=== PATIENT | female | born 1950 | race African-American/Black ===

== ENCOUNTER 2018-05-01 11:59 | Observation (INO) | payer OTHER ==
--- NOTE | 2018-05-01 13:38 | PDOC ---
History of Present Illness - General Chief Complaint: Lightheaded Stated Complaint: DIZZY / LIGHTHEADED Time Seen by Provider: 05/01/18 12:55 History Source: Patient Exam Limitations: No Limitations - History of Present Illness Initial Comments: 05/01/18 13:33 Pt is a 67yo F with PMH of DM, HTN, G6PD Deficiency, Hep B, Sickle Cell Trait, Vertigo presenting to ED for hearing a loud noise which caused her to fall face first into her suitcase. Pt said around 11:15 AM she heard "a loud bang" and she felt suddenly weak and her face fell into her suitcase. The episode was very brief and she was able to get up. She denies LOC. She states afterward she felt a fullness in her head and a headache in the posterior aspect of her head and nausea. She denies ataxia but is afraid of falling down. She denies chest pain, sob, numbness/tingling, weakness, changes in vision, ringing in ears, dizziness, lightheadedness, congestion, abdominal pain. No recent illnesses or surgeries. No history of AVM, trauma. Pt says she had a similar episode July 2017 when she heard a loud noise and went limp. PMD: Jose Guadalupe Neuro: Dickoff PMH: see hpi PSH: hysterectomy Meds: see med rec Social: denies Past History - Past Medical History Allergies/Adverse Reactions: Allergies Allergy/AdvReac Type Severity Reaction Status Date / Time aspirin Allergy UNKNOWN Verified 05/01/18 12:13 cefazolin sodium Allergy UNKNOWN Verified 05/01/18 12:13 [From Kezol] Sulfa (Sulfonamide Allergy Verified 05/01/18 12:13 Antibiotics) IVP Allergy UNKNOWN Uncoded 05/01/18 12:13 moth balls Allergy Uncoded 05/01/18 12:13 SULFA Allergy UNKNOWN Uncoded 05/01/18 12:13 Home Medications: Ambulatory Orders Atenolol [Tenormin -] 50 mg PO DAILY 09/14/12 Hydrochlorothiazide [Hctz -] 25 mg PO DAILY 06/10/13 Atorvastatin Ca [Lipitor] 10 mg PO HS 06/01/15 Glipizide 5 mg PO TID 06/01/15 Dulaglutide [Trulicity] 1.5 mg SQ WEEKLY 05/01/18 Insulin Aspart [Novolog] 0 unit SQ ASDIR 05/01/18 Insulin Degludec [Tresiba Flextouch U-100] 75 unit SQ HS 05/01/18 Anemia: Yes (sickle cell trait,G6PD deficiency) Asthma: No Cancer: No Cardiac Disorders: No CVA: No COPD: No CHF: No Dementia: No Diabetes: Yes GI Disorders: No Disorders: No HTN: Yes Hypercholesterolemia: No Liver Disease: Yes (hx of hep b) Seizures: No Thyroid Disease: No - Surgical History Abdominal Surgery: Yes (hernia repair,bilateral oopherectomy) Appendectomy: No Cardiac Surgery: No Cholecystectomy: No Lung Surgery: No Neurologic Surgery: No Orthopedic Surgery: Yes (R CARPAL TUNNEL,R SHOULDER SX,R KNEE SX) - Family Disease History Family Disease History: Diabetes: Mother, Heart Disease: Father (htn) - Immunization History Td Vaccination: Yes Immunization Up to Date: Yes - Suicide/Smoking/Psychosocial Hx Smoking Status: No Smoking History: Never smoked Have you smoked in the past 12 months: No Number of Cigarettes Smoked Daily: 0 Hx Alcohol Use: No Drug/Substance Use Hx: No Substance Use Type: None Hx Substance Use Treatment: No Review of Systems - Review of Systems Constitutional: No: Chills, Fever, Loss of Appetite HEENTM: No: Blurred Vision, Tearing, Double Vision, Ear Pain, Nose Congestion, Hearing Loss, Throat Pain, Throat Swelling Respiratory: No: Cough, Shortness of Breath Cardiac (ROS): Yes: See HPI. No: Chest Pain, Lightheadedness, Palpitations ABD/GI: Yes: Nausea. No: Constipated, Diarrhea, Vomiting, Abdominal cramping : No: Burning, Dysuria Musculoskeletal: No: Back Pain, Joint Pain, Neck Pain Integumentary: No: Symptoms Reported Neurological: Yes: Headache. No: Numbness, Tingling, Tremors, Weakness, Ataxia , Dizziness *Physical Exam - Vital Signs Last Vital Signs Temp Pulse Resp BP Pulse Ox 98.8 F 75 18 143/93 99 05/01/18 12:13 05/01/18 12:13 05/01/18 12:13 05/01/18 12:13 05/01/18 12:13 - Physical Exam General Appearance: Yes: Nourished, Appropriately Dressed. No: Apparent Distress HEENT: positive: EOMI, LATRICE, Normal ENT Inspection Neck: positive: Trachea midline, Supple. negative: Lymphadenopathy (R), Lymphadenopathy (L) Respiratory/Chest: positive: Lungs Clear, Normal Breath Sounds Cardiovascular: positive: Regular Rhythm, Regular Rate, S1, S2. negative: Edema , JVD, Murmur Vascular Pulses: Carotid (R): 2+, Carotid (L): 2+, Dorsalis-Pedis (R): 2+, Doralis-Pedis (L): 2+ Gastrointestinal/Abdominal: positive: Normal Bowel Sounds, Soft. negative: Tender Musculoskeletal: negative: CVA Tenderness Extremity: positive: Normal Capillary Refill, Pelvis Stable. negative: Swelling , Calf Tenderness Integumentary: positive: Normal Color, Dry, Warm Neurologic: positive: machine group leader II-XII NML intact, Fully Oriented, Alert, Normal Mood/ Affect, Normal Response, Motor Strength 5/5, Finger to Nose, Other (negative romberg, no ataxia). negative: Facial Droop, Numbness ED Treatment Course - LABORATORY CBC & Chemistry Diagram: 05/01/18 13:26 05/01/18 13:26 - RADIOLOGY Radiology Studies Ordered: Category Date Time Status HEAD CT WITHOUT CONTRAST [CT] Stat CT Scan 05/01/18 13:25 Ordered Medical Decision Making - Medical Decision Making 05/01/18 13:38 Pt is a 67yo F with PMH of DM, HTN, G6PD Deficiency, Hep B, Sickle Cell Trait, Vertigo presenting to ED for hearing a loud noise which caused her to fall face first into her suitcase. Pt said around 11:15 AM she heard "a loud bang" and she felt suddenly weak and her face fell into her suitcase. The episode was very brief and she was able to get up. She denies LOC. She states afterward she felt a fullness in her head and a headache in the posterior aspect of her head and nausea. She denies ataxia but is afraid of falling down. She denies chest pain, sob, numbness/tingling, weakness, changes in vision, ringing in ears, dizziness, lightheadedness, congestion, abdominal pain. No recent illnesses or surgeries. No history of AVM, trauma. Vitals: wnl PE: no neurological deficits. 05/01/18 15:18 Pt did state that she had a similar episode in the past. Pt says her whole body gets weak and she "goes down". -syncope workup: added trop and ekg. -tylenol Pt still thinking about getting LP. 05/01/18 15:19 05/01/18 17:[address] Wylie, recommends CTA 05/01/18 19:15 Pt states that she had IV contrast years ago and hours later developed SOB. She has not had contrast before then or after. Called Dr Carey who recommended MRI/MRA. Pt admitted obs for syncope. *DC/Admit/Observation/Transfer Diagnosis at time of Disposition: Syncope Qualifiers: Syncope type: unspecified Qualified Code(s): R55 - Syncope and collapse - Discharge Dispostion Condition at time of disposition: Good - Referrals - Patient Instructions - Post Discharge Activity
[2018-05-01 13:40] LABS: BASO % 0.5 % (0-2.0); EOS % 1.4 % (0-4.5); HEMATOCRIT 40.2 % (32.4-45.2); LYMPH % 33.1 % (8-40); MCH 29.2 pg (25.7-33.7); MCHC 34.7 g/dl (32.0-36.0); MEAN CELL VOLUME 84.1 fl (80-96); MEAN PLT VOLUME 9.6 fl (7.5-11.1); MONO % 7.8 % (3.8-10.2); NEUT % 57.2 % (42.8-82.8); PLATELET COUNT 201 K/MM3 (134-434); RBC 4.78 M/mm3 (3.60-5.2); RDW 13.5 % (11.6-15.6); WHITE BLOOD COUNT 7.1 K/mm3 (4.0-10.0)
[2018-05-01 14:07] LABS: ALK PHOS 110 U/L (45-117); ANION GAP 7 MMOL/L (8-16); BILIRUBIN,TOTAL 0.4 mg/dL (0.2-1); BLOOD UREA NITROGEN 9 mg/dL (7-18); CALCIUM 9.1 mg/dL (8.5-10.1); CHLORIDE 103 mmol/L (98-107); CO2 30 mmol/L (21-32); CREATININE 0.6 mg/dL (0.55-1.3); GLUCOSE,RANDOM 162 mg/dL (74-106); POTASSIUM 3.8 mmol/L (3.5-5.1); SGOT/AST 21 U/L (15-37); SGPT/ALT 26 U/L (13-61); SODIUM 140 mmol/L (136-145); TOT PROT 7.6 g/dl (6.4-8.2)
[2018-05-01 14:39] LABS: ANISOCYTOSIS 0; HELMET CELLS 0; HOWELL-JOLLY BODIES 0; MACROCYTOSIS 0; OVALOCYTE 0; PLATELET ESTIMATE NORMAL; ROULEAU 0; SICKELED CELLS 0; TARGET CELLS 0; TEAR DROP CELLS 0; TOXIC GRANULATION 0
--- NOTE | 2018-05-01 14:50 | PDOC ---
Attending Attestation - Resident Resident Name: CherieKaterin - ED Attending Attestation I have performed the following: I have examined & evaluated the patient, The case was reviewed & discussed with the resident, I agree w/resident's findings & plan, Exceptions are as noted - HPI HPI: 05/01/18 14:28 The patient is a 50 year old female, with a significant past medical history of vertigo, sickle cell train, IDDM, HepB, who presents to the emergency department with headache and syncopal episode. Pt states that she was in her bedroom packing when she suddenly heard a loud bang in her head. Pt subsequently fell forward onto her bed. Pt is unsure if she lost consciousness or not. Since the event, she has had posterior headache. She also reports nausea and a feeling of fullness to her head. Pt notes that she had a similar episode several years ago. She states she heard a loud bang that was also followed by LOC. The patient denies chest pain, shortness of breath, headache and dizziness. The patient denies fever, chills, nausea, vomit, diarrhea and constipation. The patient denies dysuria, frequency, urgency and hematuria. Allergies: NKDA Neurologist: Dr. Brown - Physicial Exam PE: 05/01/18 14:50 "GENERAL: Awake, alert, and fully oriented, in no acute distress. HEAD: No signs of trauma EYES: PERRLA, EOMI, sclera anicteric, conjunctiva clear ENT: Auricles normal inspection, hearing grossly normal, nares patent, oropharynx clear without exudates. Moist mucosa NECK: Nontender, no stepoffs, Normal ROM, supple, no lymphadenopathy, JVD, or masses LUNGS: Breath sounds equal, clear to auscultation bilaterally. No wheezes, and no crackles HEART: Regular rate and rhythm, normal S1 and S2, no murmurs, rubs or gallops ABDOMEN: Soft, nontender, normoactive bowel sounds. No guarding, no rebound. No masses EXTREMITIES: Normal range of motion, no edema. No clubbing or cyanosis. No cords, erythema, or tenderness NEUROLOGICAL: Cranial nerves II through XII intact. 5/5 strength and sensation in all extremities, Normal speech, normal gait, normal cerebellar function SKIN: Warm, Dry, normal turgor, no rashes or lesions noted. - Critical Care Time Total Critical Care Time: 60 Critical Care Statement: The care of this patient involved high complexity decision making to prevent further life threatening deterioration of the patient 's condition and/or to evaluate & treat vital organ system(s) failure or risk of failure. - Medical Decision Making 05/01/18 14:51 67 F with syncopal episode preceded by lound bang, now with dull headache. Pt is well appearing with normal mental status and neuro exam. However, given collapse and headache, will need to r/o SAH. Will also evaluate for arrhythmia or other causes of syncope. - Labs, trop - EKG - CT head - COnsider LP 05/01/18 16:35 Labs wnl EKG with lateral TWIs, no sign of arrhythmia CT head unremarkable Need LP to definitively r/o SAH. I discussed risks/benefits of LP with pt at length. Pt understands that without LP, we cannot rule out SAH, a potentially life threatening condition. However, pt states that her mother had a prolonged hospitalization for meningitis, and she is reluctant to have any invasive spinal procedure done. I explained to pt that we would use sterile technique to minimize the risk of infection. Pt states that she would like to hold off on LP at this time. Will admit to obs for syncope work up and discuss LP with pt after she has had more time to consider it. 05/01/18 17:03 Spoke again with pt, who would like to wait for her daughter to arrive to discuss LP. For now, pt continues to refuse. 05/01/18 17:[address] Carey, who states if pt refuses LP, agree with CTA 05/01/18 18:59 Pt stating that she may have a contrast allergy. Had a CT with IV contrast once in the past and developed SOB hours later. Unclear whether this was true contrast allergy. Dr. Carey recommends MRI/MRA if CTA cannot be obtained.
[2018-05-01 15:46] LABS: INR 1.22 (0.83-1.09); PROTHROMBIN TIME (PATIENT) 14.4 SEC (9.7-13.0)
[2018-05-01 15:49] LABS: ACTIVATED PTT 30.8 SECONDS (25.2-36.5)
[2018-05-01] MEDS ORDERED: ACETAMINOPHEN 1000 MG/100 ML VIAL (NON FORMULARY) IVPB ONE (17:04)
[2018-05-01] MEDS ORDERED: METOCLOPRAMIDE HCL INJECTION 10 MG/2 ML VIAL IVPB ONE (17:04)
[2018-05-01] MEDS ORDERED: ACETAMINOPHEN INJECTION 100 ML IVPB ONE (18:16)
[2018-05-01] MEDS ORDERED: METOCLOPRAMIDE HCL INJECTION 10 MG/2 ML VIAL ONE (18:18)
--- NOTE | 2018-05-01 18:48 | HP ---
Admitting History and Physical - Primary Care Physician PCP: Francis Shi - Admission Chief Complaint: syncope History of Present Illness: - History of Present Illness Initial Comments: 05/01/18 13:33 Pt is a 67yo F with PMH of DM, HTN, G6PD Deficiency, Hep B, Sickle Cell Trait, Vertigo presenting to ED for hearing a loud noise which caused her to fall face first into her suitcase. Pt said around 11:15 AM she heard "a loud bang" and she felt suddenly weak and her face fell into her suitcase. The episode was very brief and she was able to get up. She denies LOC. She states afterward she felt a fullness in her head and a headache in the posterior aspect of her head and nausea. She denies ataxia but is afraid of falling down. She denies chest pain, sob, numbness/tingling, weakness, changes in vision, ringing in ears, dizziness, lightheadedness, congestion, abdominal pain. No recent illnesses or surgeries. No history of AVM, trauma. Pt says she had a similar episode July 2017 when she heard a loud noise and went limp. PMD: Jose Guadalupe Neuro: Robert PMH: see hpi PSH: hysterectomy Meds: see med rec Social: denies Pt examined by me in ER no chest pain , palpitations, vertigo Similar episode last year was vertigo as per pt had a cardiac work up >5 years ago History Source: Patient Limitations to Obtaining History: No Limitations - Past Medical History Cardiovascular: Yes: HTN Endocrine: Yes: Diabetes Mellitus - Smoking History Smoking history: Never smoked Have you smoked in the past 12 months: No Aproximately how many cigarettes per day: 0 - Alcohol/Substance Use Hx Alcohol Use: No Home Medications - Allergies Allergies/Adverse Reactions: Allergies Allergy/AdvReac Type Severity Reaction Status Date / Time aspirin Allergy UNKNOWN Verified 05/01/18 12:13 cefazolin sodium Allergy UNKNOWN Verified 05/01/18 12:13 [From Kefzol] Sulfa (Sulfonamide Allergy Verified 05/01/18 12:13 Antibiotics) IVP Allergy UNKNOWN Uncoded 05/01/18 12:13 moth balls Allergy Uncoded 05/01/18 12:13 SULFA Allergy UNKNOWN Uncoded 05/01/18 12:13 - Home Medications Home Medications: Ambulatory Orders Atenolol [Tenormin -] 50 mg PO DAILY 09/14/12 Hydrochlorothiazide [Hctz -] 25 mg PO DAILY 06/10/13 Atorvastatin Ca [Lipitor] 10 mg PO HS 06/01/15 Glipizide 5 mg PO TID 06/01/15 Dulaglutide [Trulicity] 1.5 mg SQ WEEKLY 05/01/18 Insulin Aspart [Novolog] 0 unit SQ ASDIR 05/01/18 Insulin Degludec [Tresiba Flextouch U-100] 75 unit SQ HS 05/01/18 Review of Systems - Review of Systems Constitutional: denies: Chills, Fever Cardiovascular: denies: Chest Pain, Palpitations Physical Examination Vital Signs: Vital Signs Temperature 97.9 F 05/01/18 17:10 Pulse Rate 72 05/01/18 17:10 Respiratory Rate 16 05/01/18 17:10 Blood Pressure 150/64 05/01/18 17:10 O2 Sat by Pulse Oximetry (%) 99 05/01/18 17:10 Constitutional: Yes: No Distress, Calm Cardiovascular: Yes: Regular Rate and Rhythm Respiratory: Yes: CTA Bilaterally Gastrointestinal: Yes: Normal Bowel Sounds, Soft. No: Tenderness Edema: No Labs: CBC, BMP 05/01/18 13:26 05/01/18 13:26 Imaging - Results Cat Scan: Report Reviewed EKG: Image Reviewed Problem List - Problems (1) HTN (hypertension) Code(s): I10 - ESSENTIAL (PRIMARY) HYPERTENSION (2) Diabetes mellitus Code(s): E11.9 - TYPE 2 DIABETES MELLITUS WITHOUT COMPLICATIONS (3) Syncope Code(s): R55 - SYNCOPE AND COLLAPSE Qualifiers: Syncope type: unspecified Qualified Code(s): R55 - Syncope and collapse (4) Dizziness Code(s): R42 - DIZZINESS AND GIDDINESS Assessment/Plan check orthostasis negative CT head Cardiology and Neurology eval fall precautions iv fluids x 24 hours continue with meds check lipids and TSH cardiac enzymes air sampling and monitoring
[2018-05-01] MEDS ORDERED: ATORVASTATIN CA 10 MG TABLET (FP) ONE (21:23)
[2018-05-01] MEDS ORDERED: glipiZIDE 5 MG TABLET (FP) ONE (21:23)
[2018-05-01] MEDS: glipiZIDE 5 MG TABLET (FP) PO SCH (21:27)
[2018-05-01] MEDS: ATORVASTATIN CA 10 MG TABLET (FP) PO SCH (22:14)
[2018-05-02] MEDS: INSULIN SLIDING SCALE (NOVOLOG) 1 VIAL SQ SCH ×3 (07:17→16:59)
[2018-05-02] MEDS ORDERED: glipiZIDE 5 MG TABLET (FP) ONE (08:27)
[2018-05-02] MEDS: glipiZIDE 5 MG TABLET (FP) PO SCH ×2 (08:31→16:59)
--- NOTE | 2018-05-02 09:00 | CON.NEURO ---
Consult - Alcohol/Substance Use Hx Alcohol Use: No - Smoking History Smoking history: Never smoked Have you smoked in the past 12 months: No Aproximately how many cigarettes per day: 0 Home Medications - Allergies Allergies/Adverse Reactions: Allergies Allergy/AdvReac Type Severity Reaction Status Date / Time aspirin Allergy UNKNOWN Verified 05/01/18 12:13 cefazolin sodium Allergy UNKNOWN Verified 05/01/18 12:13 [From Kefzol] Sulfa (Sulfonamide Allergy Verified 05/01/18 12:13 Antibiotics) IVP Allergy UNKNOWN Uncoded 05/01/18 12:13 moth balls Allergy Uncoded 05/01/18 12:13 SULFA Allergy UNKNOWN Uncoded 05/01/18 12:13 - Home Medications Home Medications: Ambulatory Orders Atenolol [Tenormin -] 50 mg PO DAILY 09/14/12 Hydrochlorothiazide [Hctz -] 25 mg PO DAILY 06/10/13 Atorvastatin Ca [Lipitor] 10 mg PO HS 06/01/15 Glipizide 5 mg PO TID 06/01/15 Dulaglutide [Trulicity] 1.5 mg SQ WEEKLY 05/01/18 Insulin Aspart [Novolog] 0 unit SQ ASDIR 05/01/18 Insulin Degludec [Tresiba Flextouch U-100] 75 unit SQ HS 05/01/18 Physical Exam-Neuro Vital Signs: Vital Signs Temperature 97.8 F 05/02/18 05:30 Pulse Rate 70 05/02/18 05:30 Respiratory Rate 20 05/02/18 05:30 Blood Pressure 127/51 L 05/02/18 05:30 O2 Sat by Pulse Oximetry (%) 99 05/01/18 17:10 Labs: CBC, BMP 05/01/18 13:26 05/01/18 13:26 INR, PTT INR 1.22 (0.83-1.09) H 05/01/18 14:55 Assessment/Plan CC Episode of bang sound ( NO HEADACHE ) followed by darkening of vision but no LOC HPI 67 year old female history of DM,HTN, Vertigo. Patient was fine in her usual health on may 01, 2018 at 11 am. She hear some bang sound and she felt everything darkening. No seizure, no LOC. No headache. Patient called her PMD enroute to ED. Patient is feeling better. She also have hearing difficulty in her right ear . She has similar episode in 2018 , when she was in [place] and did not report or go to ed. Patient is feeling better and waiting for mri of brain PMH DM, HTN, Vertigo, hearing loss in right ear SH FH no history of sah ROS reviewed in chart Allergies Allergies Allergy/AdvReac Type Severity Reaction Status Date / Time aspirin Allergy UNKNOWN Verified 05/01/18 12:13 cefazolin sodium Allergy UNKNOWN Verified 05/01/18 12:13 [From [facility]] Sulfa (Sulfonamide Allergy Verified 05/01/18 12:13 Antibiotics) IVP Allergy UNKNOWN Uncoded 05/01/18 12:13 moth balls Allergy Uncoded 05/01/18 12:13 SULFA Allergy UNKNOWN Uncoded 05/01/18 12:13 HOME Medications Atenolol [Tenormin -] 50 mg PO DAILY 09/14/12 Hydrochlorothiazide [Hctz -] 25 mg PO DAILY 06/10/13 Atorvastatin Ca [Lipitor] 10 mg PO HS 06/01/15 Glipizide 5 mg PO TID 06/01/15 Dulaglutide [Trulicity] 1.5 mg SQ WEEKLY 05/01/18 Insulin Aspart [Novolog] 0 unit SQ ASDIR 05/01/18 Insulin Degludec [Tresiba Flextouch U-100] 75 unit SQ HS 05/01/18 NEUROLOGICAL EXAMINATION Alert oriented x 3, speech is normal, no neck stiffness Afebrile and bp was normal eomi, pupils reactive, left ear could not hear to finger scratch motor 5/5 all ext sensation is normal gait and coordination is normal ct head is unremarkable Assessment: 67 year old female has a episode of hearing loud sound ( no headache , no loc) following by darkening of vision. She could not get cta yesterday due to bad reaction in past. She has similar episode in past. Her comorbidity include DM,HTN, Vertigo and hearing loss. Now she is feeling much better, able to walk and no dizzy Suspician for SAH is low, as there was no headache, no neck stiffness and ct head is normal. PLAN : suggest to do mri of brain and mra of brain ( ordered ) - neurocheck and supportive care - presyncope work up as per PMD - IF mri of brain and MRA of brain is normal, no furhter work up needed from neuro point of view, and ent consult can be obtained as she has hearing loss in right ear Thanking you so much Agus Carey MD
--- NOTE | 2018-05-02 09:32 | EKG ---
Test Reason : Blood Pressure : / mmHG Vent. Rate : 068 BPM Atrial Rate : 068 BPM P-R Int : 188 ms QRS Dur : 080 ms QT Int : 410 ms P-R-T Axes : 007 029 206 degrees QTc Int : 435 ms NORMAL SINUS RHYTHM T WAVE ABNORMALITY, CONSIDER INFEROLATERAL ISCHEMIA ABNORMAL ECG WHEN COMPARED WITH ECG OF 28-JUL-2015 07:57, NONSPECIFIC T WAVE ABNORMALITY, IMPROVED IN ANTERIOR LEADS Confirmed by MELISSA NOLASCO, GREGORY ([id number]) on 05/02/2018 9:32:01 AM Referred By: Confirmed By:GREGORY TORRES MD
--- NOTE | 2018-05-02 09:36 | PN ---
Progress Note (short form) - Note Progress Note: No complaints no dizziness no chest pain no palpitations Vital Signs - 24 hr 05/01/18 05/01/18 05/02/18 12:13 17:10 05:30 Temperature 98.8 F 97.9 F 97.8 F Pulse Rate 75 70 Pulse Rate [ 72 Right Radial] Respiratory 18 16 20 Rate Blood Pressure 143/93 127/51 L Blood Pressure 150/64 [Left Arm] O2 Sat by Pulse 99 99 Oximetry (%) 05/02/18 09:28 Temperature 98 F Pulse Rate Pulse Rate [ 65 Right Radial] Respiratory 20 Rate Blood Pressure Blood Pressure 127/52 L [Left Arm] O2 Sat by Pulse 99 Oximetry (%) Current Medications Generic Name Dose Route Start Last Admin Trade Name Rita PRN Reason Stop Dose Admin Atenolol 50 mg 05/02/18 10:00 Tenormin - PO DAILY ALONA Atorvastatin Calcium 10 mg 05/01/18 22:00 05/01/18 22:14 Lipitor - PO 10 mg HS ALONA Administration Glipizide 5 mg 05/01/18 19:00 05/02/18 08:31 Glucotrol - PO 5 mg BIDAC ALONA Administration Insulin Aspart 1 vial 05/02/18 07:00 05/02/18 07:17 Novolog Vial Sliding Scale - SQ Not Given TIDAC [facility] Protocol Laboratory Results - last 24 hr 05/01/18 05/01/18 05/01/18 13:26 13:26 14:55 WBC 7.1 RBC 4.78 Hgb 14.0 Hct 40.2 MCV 84.1 MCH 29.2 MCHC 34.7 RDW 13.5 Plt Count 201 D MPV 9.6 Absolute Neuts (auto) 4.0 Neutrophils % 57.2 D Neutrophils % (Manual) 55.7 Band Neutrophils % 0.0 Lymphocytes % 33.1 D Lymphocytes % (Manual) 30.9 Monocytes % 7.8 Monocytes % (Manual) 8 Eosinophils % 1.4 Eosinophils % (Manual) 0.0 Basophils % 0.5 Basophils % (Manual) 0.0 Myelocytes % (Man) 0 Promyelocytes % (Man) 0 Blast Cells % (Manual) 0 Nucleated RBC % 0 Metamyelocytes 0 Hypochromia 0 Toxic Granulation 0 Dohle Bodies 0 Platelet Estimate Normal Polychromasia 0 Poikilocytosis 0 Basophilic Stippling 0 Anisocytosis 0 Microcytosis 0 Macrocytosis 0 Spherocytes 0 Sickle Cells 0 Target Cells 0 Tear Drop Cells 0 Ovalocytes 0 Stomatocytes 0 Helmet Cells 0 [place] Bodies 0 [place] Rings 0 Hubbell Cells 0 Acanthocytes (Spur) 0 Rouleaux 0 Fragmented RBCs 0 Schistocytes 0 PT with INR 14.40 H INR 1.22 H PTT (Actin FS) 30.8 Sodium 140 Potassium 3.8 Chloride 103 Carbon Dioxide 30 Anion Gap 7 L BUN 9 Creatinine 0.6 Creat Clearance w eGFR 99.72 POC Glucometer Random Glucose 162 H Calcium 9.1 Total Bilirubin 0.4 AST 21 ALT 26 Alkaline Phosphatase 110 Troponin I Total Protein 7.6 Albumin 4.0 05/01/18 05/01/18 05/02/18 14:55 17:00 08:14 WBC RBC Hgb Hct MCV MCH MCHC RDW Plt Count MPV Absolute Neuts (auto) Neutrophils % Neutrophils % (Manual) Band Neutrophils % Lymphocytes % Lymphocytes % (Manual) Monocytes % Monocytes % (Manual) Eosinophils % Eosinophils % (Manual) Basophils % Basophils % (Manual) Myelocytes % (Man) Promyelocytes % (Man) Blast Cells % (Manual) Nucleated RBC % Metamyelocytes Hypochromia Toxic Granulation Dohle Bodies Platelet Estimate Polychromasia Poikilocytosis Basophilic Stippling Anisocytosis Microcytosis Macrocytosis Spherocytes Sickle Cells Target Cells Tear Drop Cells Ovalocytes Stomatocytes Helmet Cells [place] Bodies [place] Rings [place] Cells Acanthocytes (Spur) Rouleaux Fragmented RBCs Schistocytes PT with INR INR PTT (Actin FS) Sodium Potassium Chloride Carbon Dioxide Anion Gap BUN Creatinine Creat Clearance w eGFR POC Glucometer 119 Random Glucose Calcium Total Bilirubin AST ALT Alkaline Phosphatase Troponin I < 0.02 < 0.02 Total Protein Albumin S1 S2 RRR Lungs clear Abd- soft, NT No edema PLAN Check Echo,. carotid doppler Negative orthostasis She has appt with ENT as outpt Neurology eval noted Cardiology consult Holter monitor ordered MRI brain pending if negative work up will dc pt by tomorrow Problem List - Problems (1) Syncope Code(s): R55 - SYNCOPE AND COLLAPSE Qualifiers: Syncope type: unspecified Qualified Code(s): R55 - Syncope and collapse (2) Dizziness Code(s): R42 - DIZZINESS AND GIDDINESS
[2018-05-02] MEDS ORDERED: ATENOLOL 25 MG TABLET (FP) ONE (11:25)
[2018-05-02] MEDS: ATENOLOL 50 MG TABLET (FP) PO SCH (11:31)
--- NOTE | 2018-05-02 13:27 | CON.CARD ---
Consult Consult Specialty:: Cardiology Referred by:: Dr. Avelar Reason for Consultation:: Near syncope - History of Present Illness Chief Complaint: Darkening vision/near syncope History of Present Illness: 67 year-old woman with a PMHx of HTN, DM-II, G6PD deficiency, Hep B, sickle cell trait, vertigo admitted 05/01/2018 with near syncope. The patient heard a loud noise which caused her to have dark vision and fall face first into her suitcase. The episode was very brief and she was able to get up. She denies LOC. She states afterward she felt a fullness in her head and a headache in the posterior aspect of her head and nausea. She denies chest pain, shortness of breath, palpitation, numbness/tingling, weakness, ringing in ears, dizziness, lightheadedness, edema, orthopnea or PND. Had a similar episode July 2017 when she heard a loud noise and went limp. She has no history of CAD, [place] or CHF. She has good exercise tolerance and is able to work over 10 blocks without exertional chest pain or SOB. CT head 05/01/2018 showed mild volume loss, otherwise unremarkable. Seen by Neuro. Brain MRI recommended. ECG 05/01/2018 revealed sinus rhythm, normal axis. Inferolateral ischemic changes. Echo 05/02/2018: Normal LV and RV size and function. No significant valvular abnormalities. Carotid duplex 05/02/2018: Mild intimal thickening in left carotid bulb and small plaque in right carotid bulb. No obstruction. - History Source History Provided By: Patient, Medical Record Limitations to Obtaining History: No Limitations - Past Medical History [employer]IST: Yes: Syncope, Vertigo Cardio/Vascular: Yes: HTN Endocrine: Yes: Diabetes Mellitus - Alcohol/Substance Use Hx Alcohol Use: No - Smoking History Smoking history: Never smoked Have you smoked in the past 12 months: No Aproximately how many cigarettes per day: 0 Home Medications - Allergies Allergies/Adverse Reactions: Allergies Allergy/AdvReac Type Severity Reaction Status Date / Time aspirin Allergy UNKNOWN Verified 05/01/18 12:13 cefazolin sodium Allergy UNKNOWN Verified 05/01/18 12:13 [From Kefzol] Sulfa (Sulfonamide Allergy Verified 05/01/18 12:13 Antibiotics) IVP Allergy UNKNOWN Uncoded 05/01/18 12:13 moth balls Allergy Uncoded 05/01/18 12:13 SULFA Allergy UNKNOWN Uncoded 05/01/18 12:13 - Home Medications Home Medications: Ambulatory Orders Atenolol [Tenormin -] 50 mg PO DAILY 09/14/12 Hydrochlorothiazide [Hctz -] 25 mg PO DAILY 06/10/13 Atorvastatin Ca [Lipitor] 10 mg PO HS 06/01/15 Glipizide 5 mg PO TID 06/01/15 Dulaglutide [Trulicity] 1.5 mg SQ WEEKLY 05/01/18 Insulin Aspart [Novolog] 0 unit SQ ASDIR 05/01/18 Insulin Degludec [Tresiba Flextouch U-100] 75 unit SQ HS 05/01/18 Review of Systems - Review of Systems Neurological: reports: Change in LOC, Syncope Vital Signs: Vital Signs Temperature 98 F 05/02/18 11:30 Pulse Rate 66 05/02/18 11:30 Respiratory Rate 20 05/02/18 11:30 Blood Pressure 134/52 L 05/02/18 11:30 O2 Sat by Pulse Oximetry (%) 99 05/02/18 11:30 General: Well developed. Well nourished. No acute distress. Head: Normocephalic. Atraumatic, Eyes: PERRLA, EOMI. Sclerae anicteric. Conjunctivae clear. Neck: Supple. No JVD. No bruits. Heart: Normal S1, S2: Regular rhythm and rate. No murmur. No gallop or rub. Lungs: Symmetrical air entry. Clear to auscultation. No crackles. No wheezing or rhonchi. Abdomen: Soft. Bowel sound positive. Non tender. No masses. Extremities: No edema. No clubbing or cyanosis. PD 2+, equal bilaterally. Neuro: Intact, no focal findings. AAO X3. - Other Data Labs, Other Data: CBC, BMP 05/01/18 13:26 05/01/18 13:26 INR, PTT INR 1.22 (0.83-1.09) H 05/01/18 14:55 Troponin, BNP 05/01/18 05/01/18 14:55 17:00 Troponin I < 0.02 < 0.02 Troponin, BNP 05/01/18 05/01/18 14:55 17:00 Troponin I < 0.02 < 0.02 Assessment/Plan 67 year-old woman with a PMHx of HTN, DM-II, G6PD deficiency, Hep B, sickle cell trait, vertigo admitted 05/01/2018 with near syncope. The patient heard a loud noise which caused her to have dark vision and fall face first into her suitcase. The episode was very brief and she was able to get up. She denies LOC. She has no history of CAD, [place] or CHF. She has good exercise tolerance and is able to work over 10 blocks without exertional chest pain or SOB. CT head 05/01/2018 showed mild volume loss, otherwise unremarkable. Seen by Neuro. Brain MRI recommended. ECG 05/01/2018 revealed sinus rhythm, normal axis. Inferolateral ischemic changes. Echo 05/02/2018: Normal LV and RV size and function. No significant valvular abnormalities. Carotid duplex 05/02/2018: Mild intimal thickening in left carotid bulb and small plaque in right carotid bulb. No obstruction. 1) Near syncope: Transient dark vision and fall, not typical syncope or near syncope. She has normal echocardiogram and unremarkable carotid duplex. Her symptoms are likely non-cardiac. 2) Abnormal baseline ECG with evidence of inferolateral ischemia. But she has no symptoms of angina with good exercise tolerance. Out-pt cardiac follow up with Dr. Ochoa. No in-patient ischemic work up recommended. Please call us for reconsult as needed.
--- NOTE | 2018-05-02 14:15 | ECHO ---
Name: JARED RUST Exam:Adult Echocardiogram Study Date: 05/02/2018 10:24 AM Age: 67 yrs Reason For Study: SYNCOPE Height: 60 in Weight: 135 lb BSA: 1.6 m2 MMode/2D Measurements & Calculations IVSd: 1.2 cm Ao root diam: 2.5 cm LVIDd: 2.9 cm LA dimension: 2.6 cm LVIDs: 2.1 cm LVPWd: 1.4 cm EDV(Teich): 31.0 ml LVOT diam: 2.0 cm ESV(Teich): 14.7 ml LAV (MOD-bp): 44.4 ml Doppler Measurements & Calculations MV E max arnoldo: 88.3 cm/sec Ao V2 max: 160.2 cm/sec MV A max arnoldo: 102.3 cm/sec Ao max P.3 mmHg MV E/A: 0.86 MV dec time: 0.16 sec SHELLEY(V,D): 1.9 cm2 LV V1 max P.0 mmHg PA V2 max: 86.9 cm/sec LV V1 max: 99.4 cm/sec PA max P.0 mmHg Med Peak E' Arnoldo: 6.2 cm/sec PI Vmax: 90.9 cm/sec Med E/e': 14.2 Lat Peak E' Arnoldo: 8.7 cm/sec Lat E/e': 10.1 Procedure A two-dimensional transthoracic echocardiogram with color flow and Doppler was performed. Left Ventricle The left ventricular size, thickness and function are normal. The left ventricular ejection fraction is normal. E/A reversal consistent with but not diagnostic of poor LV compliance. The left ventricular w all motion is normal. Right Ventricle The right ventricle is normal in size and function. Atria Normal left and right atrial size and function. Mitral Valve There is mild mitral valve thickening. There is no mitral valve stenosis. There is trace to mild mitr al regurgitation. Tricuspid Valve There is mild tricuspid valve thickening. There is no tricuspid stenosis. There was insufficient TR d etected to calculate RV systolic pressure. Aortic Valve The aortic valve is normal in structure and function. No hemodynamically significant valvular aortic stenosis. No aortic regurgitation is present. Pulmonic Valve The pulmonic valve is not well visualized. There is no pulmonic valvular stenosis. Trace to mild pulm onic valvular regurgitation. Great Vessels The aortic root is normal size. Pericardium/Pleura There is no pericardial effusion. Interpretation Summary The left ventricular size, thickness and function are normal The left ventricular ejection fraction is normal. The left ventricular wall motion is normal. There was insufficient TR detected to calculate RV systolic pressure. E/A reversal consistent with but not diagnostic of poor LV compliance There is trace to mild mitral regurgitation. MD Aries Devine 05/02/2018 02:14 PM
[2018-05-02 16:32] VITALS: BMI 26.5
[2018-05-02] MEDS: ATORVASTATIN CA 10 MG TABLET (FP) PO SCH (21:07)
[2018-05-03] MEDS: INSULIN SLIDING SCALE (NOVOLOG) 1 VIAL SQ SCH ×2 (06:28→12:03)
[2018-05-03] MEDS: glipiZIDE 5 MG TABLET (FP) PO SCH (06:45)
[2018-05-03] MEDS: ATENOLOL 50 MG TABLET (FP) PO SCH (09:56)
[2018-05-03 09:59] VITALS: BP 122/78; PULSE 74; TEMP 98.2
--- NOTE | 2018-05-03 10:51 | DS ---
Physical Examination Vital Signs: Vital Signs Temperature 98.2 F 05/03/18 09:57 Pulse Rate 74 05/03/18 09:57 Respiratory Rate 16 05/03/18 09:57 Blood Pressure 122/78 05/03/18 09:57 O2 Sat by Pulse Oximetry (%) 97 05/02/18 21:00 Constitutional: Yes: No Distress Cardiovascular: Yes: Regular Rate and Rhythm Respiratory: Yes: CTA Bilaterally Gastrointestinal: Yes: Normal Bowel Sounds, Soft. No: Tenderness Edema: No Labs: CBC, BMP 05/01/18 13:26 05/01/18 13:26 Discharge Summary Reason For Visit: SYNCOPE Current Active Problems Diabetes mellitus (Acute) HTN (hypertension) (Acute) Syncope (Acute) Hospital Course: Admitted for syncope Pt was evaluated by cardiology, Neurology Carotid doppler-- no significant stenosis cardiac enzymes negative CT head-negative MRI brain, MRA-- negative Echo- normal Telemetry unremarkable Stable for dc home Follow up with ENT, cardiology as outpt Condition: Good - Instructions Referrals: Sarath Ochoa MD [Staff Physician] - Disposition: HOME - Home Medications Comprehensive Discharge Medication List: Ambulatory Orders Atenolol [Tenormin -] 50 mg PO DAILY 09/14/12 Hydrochlorothiazide [Hctz -] 25 mg PO DAILY 06/10/13 Atorvastatin Ca [Lipitor] 10 mg PO HS 06/01/15 Glipizide 5 mg PO TID 06/01/15 Dulaglutide [Trulicity] 1.5 mg SQ WEEKLY 05/01/18 Insulin Aspart [Novolog] 0 unit SQ ASDIR 05/01/18 Insulin Degludec [Tresiba Flextouch U-100] 75 unit SQ 05/01/18
--- NOTE | 2018-05-03 14:30 | PN ---
Progress Note (short form) - Note Progress Note: Episode of bang sound ( NO HEADACHE ) followed by darkening of vision but no LOC HPI 67 year old female history of DM,HTN, Vertigo. Patient was fine in her usual health on may 01, 2018 at 11 am. She hear some bang sound and she felt everything darkening. No seizure, no LOC. No headache. Patient called her PMD enroute to ED. Patient is feeling better. She also have hearing difficulty in her right ear . She has similar episode in 2018 , when she was in [place] and did not report or go to ed. No new symtoms, she is feeling much better NEUROLOGICAL EXAMINATION Alert oriented x 3, speech is normal, no neck stiffness Afebrile and bp was normal eomi, pupils reactive, left ear could not hear to finger scratch motor 5/5 all ext sensation is normal gait and coordination is normal ct head is unremarkable Assessment: 67 year old female has a episode of hearing loud sound ( no headache , no loc) following by darkening of vision. She could not get cta yesterday due to bad reaction in past. She has similar episode in past. Her comorbidity include DM,HTN, Vertigo and hearing loss. feeling normal, normal exam mri of brain and mra is normal Patient an be discharged and follow up with as outpatient Thanking you so much Agus Carey MD
== END 2018-05-03 13:14 | disposition home or self-care (01) ==
LOC: JER 11:59 → JERBED 16:12 → J4S 05-02 15:27
PROVIDERS: ADMIT Internal Medicine; ATTEND Internal Medicine
PROC: 3E033NZ Introduction of Analgesics, Hypnotics, Sedatives into Peripheral Vein, Percutaneous Approach (ICD-10-PCS; principal; 2018-05-01)
PROC: 3E033GC Introduction of Other Therapeutic Substance into Peripheral Vein, Percutaneous Approach (ICD-10-PCS; 2018-05-01)
DX: R55 Syncope and collapse (principal); R42 Dizziness and giddiness; I10 Essential (primary) hypertension; E11.9 Type 2 diabetes mellitus without complications; D55.0 Anemia due to glucose-6-phosphate dehydrogenase [G6PD] deficiency; D57.3 Sickle-cell trait; R94.31 Abnormal electrocardiogram [ECG] [EKG]; Z79.4 Long term (current) use of insulin; Z79.84 Long term (current) use of oral hypoglycemic drugs; Z88.2 Allergy status to sulfonamides; Z88.6 Allergy status to analgesic agent; Z88.8 Allergy status to other drugs, medicaments and biological substances; Z86.19 Personal history of other infectious and parasitic diseases
CPT/HCPCS: 36415; 70450-TC; 70544-TC; 70551-TC; 80053; 80061; 82962; 83721; 84443; 84484; 85025; 85610; 85730; 93005; 93010; 93306-TC; 93880-TC; 96374; 96375; 99284-25; G0378; J0131

== ENCOUNTER 2018-07-31 07:31 | Day surgery (SDC) | payer OTHER ==
[2018-07-30 10:31] VITALS: BMI 26.2
[2018-07-31 08:38] VITALS: TEMP 98.2
[2018-07-31 08:59] VITALS: PULSE 60
[2018-07-31 09:32] VITALS: BP 151/64
== END 2018-07-31 10:00 | disposition home or self-care (01) ==
LOC: JASU-ENDO 07:31
PROVIDERS: ATTEND Internal Medicine Gastroenterology
PROC: 0DJD8ZZ Inspection of Lower Intestinal Tract, Via Natural or Artificial Opening Endoscopic (ICD-10-PCS; principal; 2018-07-31 08:00)
DX: Z12.11 Encounter for screening for malignant neoplasm of colon (principal); K63.89 Other specified diseases of intestine; D57.3 Sickle-cell trait

== ENCOUNTER 2022-07-22 10:45 | Emergency (ER) | payer OTHER ==
[2022-07-22 10:52] VITALS: BP 100/76; PULSE 61; RESP 17; TEMP 98.5; BMI 25.4
[2022-07-22] MEDS ORDERED: ACETAMINOPHEN 500 MG TABLET (FP) PO ONE (11:28)
[2022-07-22] MEDS ORDERED: ACETAMINOPHEN 325 MG TABLET (FP) ONE (11:40)
== END 2022-07-22 12:08 | disposition home or self-care (01) ==
LOC: JERFT 10:45
DX: M79.641 Pain in right hand (principal); M25.531 Pain in right wrist; M79.631 Pain in right forearm; G56.21 Lesion of ulnar nerve, right upper limb
CPT/HCPCS: 99283-25

== ENCOUNTER 2024-07-14 14:44 | Observation (INO) | payer OTHER ==
[2024-07-14 14:47] VITALS: BMI 25.7
[2024-07-14 16:08] LABS: ABSOLUTE IMMATURE GRANULOCYTES 0.13 x10^3/uL (0.0-0.031); BASOPHILS # 0.05 x10^3/uL (0.01-0.08); EOSINOPHIL % 1.8 % (0.7-5.8); EOSINOPHILS # 0.12 x10^3/uL (0.04-0.36); HEMATOCRIT 40.9 % (34.1-44.9); HEMOGLOBIN 13.5 g/dL (11.2-15.7); MEAN CELL VOLUME 83.3 fl (79.4-94.8); MEAN PLT VOLUME 11.6 fl (9.4-12.3); MONOCYTE # 0.72 x10^3/uL (0.24-0.86); PLATELET COUNT 215 x10^3/uL (182-369); RDW 14.1 % (12.4-16.6)
[2024-07-14 16:38] LABS: POTASSIUM 5.4 mmol/L (3.5-5.1)
[2024-07-14 16:40] LABS: CALCIUM 9.7 mg/dL (8.5-10.1)
[2024-07-14 16:41] LABS: BLOOD UREA NITROGEN 12.2 mg/dL (7-18)
[2024-07-14 16:44] LABS: CREATININE 0.9 mg/dL (0.55-1.3)
[2024-07-14 16:45] LABS: BILIRUBIN,TOTAL 0.6 mg/dL (0.2-1); TOT PROT 7.5 g/dl (6.4-8.2)
[2024-07-14 17:15] LABS: INR 1.28 (0.83-1.09); PROTHROMBIN TIME (PATIENT) 14.1 SEC (9.7-13.0)
[2024-07-14 17:18] LABS: ACTIVATED PTT 29.2 SECONDS (25.2-36.5)
[2024-07-14] MEDS ORDERED: MAG HYDROX/AL HYDROX/SIMETH 30 ML UNIT-DOSE CUP ONE (17:20)
[2024-07-14] MEDS ORDERED: ACETAMINOPHEN INJECTION 100 ML ONE (17:20)
[2024-07-14] MEDS ORDERED: FAMOTIDINE 20 MG/50 ML IVPB 20 MG/50 ML MG IVPB ONE (17:20)
[2024-07-14] MEDS: FAMOTIDINE 20 MG/50 ML IVPB 20 MG/50 ML MG IVPB ONE (17:26)
[2024-07-14] MEDS: ACETAMINOPHEN 1000 MG/100 ML BAG IVPB ONE (17:26)
[2024-07-14] MEDS: MAG HYDROX/AL HYDROX/SIMETH 30 ML UNIT-DOSE CUP PO ONE (17:26)
[2024-07-14 18:30] LABS: POTASSIUM 3.9 mmol/L (3.5-5.1)
[2024-07-14] MEDS ORDERED: DOCUSATE SODIUM 100 MG CAPSULE (FP) PO PRN (21:59)
[2024-07-14] MEDS ORDERED: MELATONIN 5 MG TABLETS PO PRN (22:05)
[2024-07-14] MEDS: INSULIN ASPART SLIDING SCALE (NOVOLOG) 1 VIAL SQ SCH (22:45)
[2024-07-15 00:43] VITALS: TEMP 98.1
[2024-07-15 06:57] LABS: POTASSIUM 3.8 mmol/L (3.5-5.1)
[2024-07-15 06:59] LABS: CALCIUM 9.5 mg/dL (8.5-10.1)
[2024-07-15 07:00] LABS: BLOOD UREA NITROGEN 11.5 mg/dL (7-18); MAGNESIUM 1.9 mg/dL (1.8-2.4)
[2024-07-15 07:02] LABS: CREATININE 0.8 mg/dL (0.55-1.3)
[2024-07-15 07:03] LABS: PHOSPHOROUS 4.2 mg/dL (2.5-4.9)
[2024-07-15 08:35] LABS: ABSOLUTE IMMATURE GRANULOCYTES 0.09 x10^3/uL (0.0-0.031); BASOPHILS # 0.03 x10^3/uL (0.01-0.08); HEMATOCRIT 38.7 % (34.1-44.9); HEMOGLOBIN 12.8 g/dL (11.2-15.7); MCHC 33.1 g/dl (32.2-35.5); MEAN CELL VOLUME 83.6 fl (79.4-94.8); MEAN PLT VOLUME 11.2 fl (9.4-12.3); MONOCYTE # 0.48 x10^3/uL (0.24-0.86); MONOCYTE % 9.7 % (4.7-12.5); PLATELET COUNT 184 x10^3/uL (182-369); RDW 13.7 % (12.4-16.6)
[2024-07-15] MEDS ORDERED: INSULIN ASPART SLIDING SCALE (NOVOLOG) 1 VIAL SQ ONE (08:36)
[2024-07-15] MEDS: INSULIN ASPART SLIDING SCALE (NOVOLOG) 1 VIAL SQ SCH (08:51)
[2024-07-15 10:17] VITALS: PULSE 64; RESP 20
[2024-07-15] MEDS ORDERED: ATENOLOL 50 MG TABLET (FP) ONE (10:35)
[2024-07-15] MEDS ORDERED: PANTOPRAZOLE 40 MG TABLET PO ONE (10:35)
[2024-07-15] MEDS ORDERED: HYDROCHLOROTHIAZIDE 25 MG TABLET (FP) ONE (10:35)
[2024-07-15] MEDS ORDERED: ATORVASTATIN CA 10 MG TABLET (FP) ONE (10:35)
[2024-07-15] MEDS: ATORVASTATIN CA 10 MG TABLET (FP) PO SCH (10:45)
[2024-07-15] MEDS: PANTOPRAZOLE 40 MG TABLET PO SCH (10:45)
[2024-07-15] MEDS: ATENOLOL 50 MG TABLET (FP) PO SCH (10:45)
[2024-07-15] MEDS: HYDROCHLOROTHIAZIDE 25 MG TABLET (FP) PO SCH (10:45)
[2024-07-15 10:46] VITALS: BP 137/77
[2024-07-15] MEDS ORDERED: SUCRALFATE 1 GM/10 ML UNIT DOSE CUPS PO SCH (11:00)
[2024-07-15] MEDS ORDERED: ENALAPRIL MALEATE 2.5 MG TABLET PO SCH (22:00)
[2024-07-16] MEDS ORDERED: ACETAMINOPHEN 1000 MG/100 ML BAG IVPB PRN (00:01)
[2024-07-17] MEDS ORDERED: ACETAMINOPHEN 500 MG TABLET (FP) PO PRN (00:01)
== END 2024-07-15 11:10 | disposition home or self-care (01) ==
LOC: JER 14:44 → JERBED 19:18
PROVIDERS: ADMIT Internal Medicine; ATTEND Internal Medicine
PROC: 3E033NZ Introduction of Analgesics, Hypnotics, Sedatives into Peripheral Vein, Percutaneous Approach (ICD-10-PCS; principal; 2024-07-14)
PROC: 3E033GC Introduction of Other Therapeutic Substance into Peripheral Vein, Percutaneous Approach (ICD-10-PCS; 2024-07-14)
PROC: 3E013VG Introduction of Insulin into Subcutaneous Tissue, Percutaneous Approach (ICD-10-PCS; 2024-07-14)
DX: I20.89 Other forms of angina pectoris (principal); R07.89 Other chest pain; D57.3 Sickle-cell trait; I10 Essential (primary) hypertension; E78.5 Hyperlipidemia, unspecified; E11.9 Type 2 diabetes mellitus without complications; D75.A Glucose-6-phosphate dehydrogenase (G6PD) deficiency without anemia
CPT/HCPCS: 36415; 71045-TC-FY; 80048; 80053; 82962; 83690; 83735; 84100; 84132; 84484; 85025; 85610; 85730; 86850; 86900; 86901; 93005; 93010; 96365; 96372; 96375; 99285-25; G0378